=== PATIENT | male | born 1945 | race Caucasian/White ===

== ENCOUNTER → 2018-01-08 07:29 | Outpatient (CLI) | payer MEDICARE, OTHER, SELFPAY ==
--- NOTE | 2018-01-08 08:00 | CT_ITS ---
CT abdomen pelvis wo con CLINICAL INDICATION: Left flank pain ITS.REASON: FLANK PAIN ORDERING PHYSICIAN: Giuseppe Qureshi MD PATIENT AGE: 72 years COMPARISON: None TECHNIQUE: Axial images obtained with sagittal and coronal reformats. All CT scans at the facility use one or more dose reduction, viz: automated exposure control, ma/kV adjustment per patient size (including targeted exams where dose is matched to indication, i.e. head), or iterative reconstruction technique. PROCEDURE: Oral Contrast: None IV Contrast: None . FINDINGS: Lung bases show no acute finding. There has been a prior cholecystectomy. The liver, spleen, and adrenal glands have an unremarkable appearance. No pancreatic mass or peripancreatic fluid collection is evident. No renal calculi are evident. There is however, a 4 mm stone within the distal left ureter in the mid pelvic region. No hydronephrosis or ureteral dilatation is evident.. There is a small ventral abdominal wall hernia in the subxiphoid region containing fat. No intestinal obstruction or free air. There has been prior appendectomy. There is diverticulosis of the descending and sigmoid colon but no evidence of diverticulitis. There is a small left inguinal hernia which contains fat. No pelvic mass abnormal fluid collection or focal inflammatory changes evident within the pelvis. The urinary bladder has an unremarkable appearance. There are degenerative changes of the lumbar spine. IMPRESSION: 1. 4 mm left distal ureteral stone. This is in the mid pelvic region approximately 2 cm proximal to the ureteropelvic junction. No hydronephrosis or hydroureter. 2. Diverticulosis coli. 3. Small left femoral hernia containing fat and small subxiphoid ventral abdominal hernia containing fat
== END ==
PROVIDERS: PCP Internal Medicine Adolescent Medicine; Visit Provider Internal Medicine Adolescent Medicine
DX: R10.9 Unspecified abdominal pain (principal)
CPT/HCPCS: 74176

== ENCOUNTER 2018-02-12 09:00 | Outpatient (RCR) | payer MEDICARE, OTHER, SELFPAY ==
--- NOTE | 2018-01-29 10:46 | HMH.OTOPEV ---
OT Inpatient Evaluation Rehab OT Outpatient Eval Start: 01/29/18 10:29 Freq: Status: Active Protocol: Document 01/29/18 10:30 TFRY (Rec: 01/29/18 10:45 TFRY [id number]) Electronically Signed By Sunshine Borrero OT 01/29/18 10:30 Outpatient Therapy Subjective History Subjective History THIS IS A 72 YEAR OLD REFERRED TO OCCUPATIONAL THERAPY FOR LEFT ELBOW TENDINITIS. PATIENT REPORTS THAT THE PROBLEM HAS BEEN GOING ON FOR 6-8 MONTHS BUT HAS CONTINUED TO GET WORSE. HE REPORTS GOING TO THE [facility] AND WAS ON MEDICATIONS BUT NOTHING HAS WORKED. Chief Complaint Pain Symptom Type Ache Other Symptoms Relieved By Prescription Meds Symptoms Aggravated By Physical Activity Prior Functional Limitations None Current Functional Limitations None Symptom Description Constant but Variable Level of pain today (0-10) 2 Pain scale - at its best (0-10) 2 Pain scale - at its worst (0-10) 8 Shoulder/Elbow Eval Shoulder Objective Measurements Elbow Objective Measurements Palpation Tenderness Elbow Palpation Finding Tenderness tenderness elbow exam standard left tenderness over the medial epicondyle left elbow exam standard swelling elbow exam standard left Elbow ROM Left full ROM elbow exam standard left pain with active ROM elbow exam standard left pain with passive ROM elbow exam left standard Elbow ROM Limitations Pain Elbow MMT Elbow Flexion Strength Grade 4 Good Elbow Extension Strength Grade 3+ Fair+ Elbow Special Tests Medial Epicondylitis Test Positive Left OT Outpatient Assessment Impairments Problems/Impairments Palpation Tenderness Impaired Strength Impaired Shower/Bathing Impaired Recreational Activities Subjective C/O Pain Prognosis Rehab Potential Good Clinical Impression Consistent with Diagnosis Yes Short Term Goals Number of Weeks 3 Decreased Palpation Tenderness Yes: LEFT MEDIAL EPICONDYLE Increase Strength Yes: LEFT ELBOW EXTENSION - 4/ 5 Improve Ability to Shower/Bathe Self Yes: WITHOUT PAIN Return to Recreational Activities Yes: PERFORM WITHOUT PAIN Decrease Subjective C/O Pain Yes: PAIN A 5 AT WORSE IN LEFT ELBOW Patient to be Ind
== END 2018-03-12 09:44 | disposition home or self-care (01) ==
LOC: OT 09:00
PROVIDERS: PCP Internal Medicine Adolescent Medicine; Visit Provider Internal Medicine Adolescent Medicine
DX: M77.8 Other enthesopathies, not elsewhere classified (principal)
CPT/HCPCS: 97014; 97033; 97110; 97140; 97165; G0283

== ENCOUNTER 2018-02-24 11:00 | Outpatient (RCR) | payer MEDICARE, OTHER, SELFPAY ==
--- NOTE | 2018-02-18 09:59 | HMH.PTOPEV ---
PT Outpatient Evaluation Rehab PT Outpatient Evaluation Start: 02/18/18 09:41 Freq: Status: Active Protocol: Document 02/18/18 09:41 VANCE (Rec: 02/18/18 09:59 VANCE [id number]) Electronically Signed By Quinton Dang, PT 02/18/18 09:41 Outpatient Therapy Subjective History Subjective History Patient is a 72 year old male presenting to outpatient PT with reports of L medial elbow pain of insidious onset starting approximately 8 months ago that has progressively gotten worse. Pt previously was prescribed a round of oral steroids that provided some relief. Comorbidities include hx of cardiac bypass surgery x 2, multiple wrist/hand surgeries bilaterally (x5), TKA, appendectomy. Chief Complaint Pain Symptom Type Ache Sharp Symptoms Relieved By Rest/Positioning Ice Prescription Meds Symptoms Aggravated By Physical Activity Lifting Prior Functional Limitations None Current Functional Limitations Reaching Lifting Housework Recreation Activity Symptom Description Constant but Variable Level of pain today (0-10) 3 Pain scale - at its best (0-10) 3 Pain scale - at its worst (0-10) 9 Shoulder/Elbow Eval Shoulder Objective Measurements Elbow Objective Measurements Elbow ROM Bilateral full ROM elbow exam standard bilateral Elbow MMT Left Elbow Flexion Strength Grade 4 Good Biceps Brachii Strength Grade 4 Good Brachioradialis Strength Grade 4 Good Triceps Brachii Strength Grade 4 Good Elbow Special Tests Elbow Flexion Test Negative Left Elbow Special Test: Pinch Business Integration Analyst Test Negative Left Elbow Hyperextension Test Negative Left Passive Tennis Elbow Test Negative Left Elbow Tinel's Sign Negative Left Elbow Valgus Stress Test Negative Left Elbow Varus Stress Test Negative Left Medial Epicondylitis Test Negative Left Positive Right Tendon Reflex Test triceps (L) PM 2+ Brachioradialis (L) PM 2+ biceps (L) ED 2+ triceps (R) PM 2+ Brachioradialis (R) PM 2+ biceps (R) E
== END 2018-02-24 11:05 | disposition home or self-care (01) ==
LOC: PT 11:00
PROVIDERS: Visit Provider Internal Medicine Adolescent Medicine
DX: M77.8 Other enthesopathies, not elsewhere classified (principal)
CPT/HCPCS: 97010; 97014; 97035; 97110; 97140; 97163; G0283

== ENCOUNTER → 2018-03-24 11:57 | Outpatient (CLI) | payer MEDICARE, OTHER, SELFPAY ==
--- NOTE | 2018-03-24 12:06 | CT_ITS ---
CT abdomen pelvis wo con CLINICAL INDICATION: Left flank pain past 3 days ITS.REASON: FLANK PAIN ORDERING PHYSICIAN: Giuseppe Qureshi MD PATIENT AGE: 72 years TECHNIQUE: No oral nor IV contrast utilized. Axial images obtained with sagittal and coronal reformats. All CT scans at the facility use one or more dose reduction, viz: automated exposure control, ma/kV adjustment per patient size (including targeted exams where dose is matched to indication, i.e. head), or iterative reconstruction technique.. COMPARISON: Previous CT abdomen and pelvis January 08, 2018 FINDINGS: Lung bases show no acute finding.. Mild cardiomegaly. CABG.. Abdomen/pelvis. Lack of oral and IV contrast somewhat decreases sensitivity. The Liver Spleen, Pancreas, Adrenals unremarkable on this noncontrast study. There has been a prior cholecystectomy. The.. No pancreatic mass or peripancreatic fluidcollection is evident. Abnormal dilated inflamed distal left ureter: On the previous CT abdomen there is a 4 mm ureteral calculus at the distal left ureter. This has since passed and now is seen within the right aspect of the bladder. It measures 4 x 5 mm size. It resides adjacent to the right trigone. In addition there appears be mild diffuse wall thickening at the posterior bladder most evident to the left-. This likely reflects some inflammation or cystitis associated with the distal left ureteral inflammation described below... However since prior January CT there is now additional distal left ureteral dilatation, wall thickening. Periureteral inflammation and stranding in the periureteral fat is seen all along the distal left ureter. The most evident left ureteral dilatation and wall thickening is seen within the left ureter crosses the left iliac vessels vessels... Moderate Wispy stranding from this left periureteral region extends anteriorly along left pelvic sidewall to to the left inguinal region. No o focal fluid collection pelvis. No free fluid in cul-de-sac. No adjacent or associated diverticulitis to account for these inflammatory changes otherwise Suggest recheck of urinalysis for any related urinary tract infection. There could be some trauma of the ureter as a stone passed resulting in some with inflammation/infection; or possibly related blood or clots which may be contributing to this mild dilated left ureter appearance. More superiorly the left ureter appears to be normal an is no hydronephrosis.. Subtle stranding about both kidneys is noted. Most likely reflecting some mild chronic changes similar appearance previous. Less likely related to pyelonephritis. No retroperitoneal adenopathy. A few small nodes along the left pelvic sidewall. Small unimpressive. . GI tract Question small hiatal hernia stomach unremarkable. Duodenum unremarkable. Small bowel unremarkable. Terminal ileum satisfactory. Large bowel. Generous stool throughout the right colon. Moderate stool transverse colon. Relatively empty left colon. Diverticulosis most evident in pronounced throughout the sigmoid colon with scattered diverticuli throughout the left colon. No diverticulitis There is a small ventral abdominal wallhernia in the immediate subxiphoid region containing fat.. Stable not concern currently. Nor is a stable small fat-containing umbilical hernia. Generous fat along the left inguinal canal is again seen stable with slight laxity left inguinal ring which may reflect minor left inguinal hernia bulge. No bowel hernia here.. Osseous structures. Prominent Degenerative disc changes throughout spine again noted., With associated facet hypertrophy throughout lower spine. IMPRESSION. 1. The previous Distal left ureteral stone seen on January 2018 CT has passed
== END ==
PROVIDERS: PCP Internal Medicine Adolescent Medicine; Visit Provider Internal Medicine Adolescent Medicine
DX: R10.9 Unspecified abdominal pain (principal)
CPT/HCPCS: 74176

== ENCOUNTER → 2018-03-28 18:02 | Outpatient (CLI) | payer MEDICARE, OTHER, SELFPAY ==
[2018-04-10 11:14] LABS: Size 5x5x3 mm (.)
[2018-04-10 14:48] LABS: Specimen Type Comment: (.)
== END ==
PROVIDERS: Visit Provider Internal Medicine Adolescent Medicine
DX: N20.0 Calculus of kidney (principal)
CPT/HCPCS: 82370

== ENCOUNTER → 2019-10-12 12:42 | Outpatient (CLI) | payer MEDICARE, SELFPAY ==
--- NOTE | 2019-10-12 14:34 | CT_ITS ---
PROCEDURE: CT CHEST WO CON CLINICAL INDICATION: DYSPNEA Shortness of air COMPARISON: ABDPELWO CT abdomen pelvis wo con from 03/24/2018 TECHNIQUE: Axial images obtained with sagittal and coronal reformats. All CT scans at the facility use one or more dose reduction, viz: automated exposure control, ma/kV adjustment per patient size (including targeted exams where dose is matched to indication, i.e. head), or iterative reconstruction technique. FINDINGS: HEART AND MEDIASTINAL STRUCTURES: Prior CABG. Mild nonspecific thickening of the distal esophagus LUNGS AND PLEURAL SPACES: COPD with some scattered scarring. 3 mm noncalcified nodule right lower lobe posteriorly image 49 series 3. 3 mm noncalcified nodule left upper lobe series 3, image 32. 3 mm noncalcified nodule in the lingula. Calcified granuloma left lower lobe. 3 mm noncalcified nodule left lung base image 60 series 3 associated with some atelectatic or fibrotic changes. Four mm noncalcified nodule left lower lobe subpleural image 55 series 3. 4 mm nodule right lower lobe image 47 series 3 BONY STRUCTURES: No acute bony abnormalities apparent. UPPER ABDOMEN: Unremarkable. ADDITIONAL FINDINGS: No other significant abnormalities. IMPRESSION: 1. No acute finding. 2. COPD with scattered areas of scarring and scattered 3-4 mm noncalcified pulmonary nodules. Recommend six-month follow-up. 3. Mild nonspecific thickening of the distal esophagus Dictated by: Jan Murillo MD 10/13/2019 12:08 Electronically signed by Jan Murillo MD in [place] 10/13/2019 12:08
== END ==
PROVIDERS: PCP Internal Medicine Adolescent Medicine; Visit Provider Internal Medicine Adolescent Medicine
DX: R06.00 Dyspnea, unspecified (principal)
CPT/HCPCS: 71250; 94060; 94640; 94726; 94729

== ENCOUNTER → 2020-01-11 12:37 | Outpatient (CLI) | payer MEDICARE, SELFPAY ==
--- NOTE | 2020-01-11 | CA_ITS ---
APPROVED REPORT Left Lower Extremity Venous Study for DVT. Barrel Finisher: VENTURA Indications Lower Extremity Pain: Left HLD, HTN Risk Factors Trauma Patient states he hit is left lower leg with ax handle 01/07/20. Pain, bruising, and edema since. Medications Aspirin 81 mg ASA daily Vein Imaging CFV (L): compressive, spontaneous, phasic, augmentation FEM (L): compressive, spontaneous, phasic, augmentation POP (L): compressive, spontaneous, phasic, augmentation PTV (L): Compressible GSV (L): compressive, spontaneous, phasic, augmentation SSV (L): Compressible Peroneals (L):Compressible GAS (L): Compressible Findings No evidence of DVT or superficial thrombophlebitis in the veins scanned of the left lower extremity. Non-vascularized solid structure visualized in the left medial calf consistent with hematoma measuring approximately 2.9 cm x 1.4 cm. Conclusion No evidence of DVT or superficial thrombophlebitis in the veins scanned of the left lower extremity. Non-vascularized solid structure visualized in the left medial calf consistent with hematoma measuring approximately 2.9 cm x 1.4 cm. Electronically signed by : Jan Murillo MD 01/11/2020 17:15:38
--- NOTE | 2020-01-11 13:44 | XR_ITS ---
PROCEDURE: XR TIBIA FIBULA LT 2V CLINICAL INDICATION: LT LEG SWELLING,LT LEG PAIN COMPARISON: No exams were available for comparison FINDINGS: No fracture or dislocation. No lytic or blastic change. There is normal mineralization. Surgical clips are present along the medial aspect of the proximal leg and distally at the medial aspect of the ankle joint. Other findings:None. IMPRESSION: No acute findings. Dictated by: Jan Murillo MD 01/11/2020 14:24 Jan Murillo MD in [facility] 01/11/2020 14:24
== END ==
PROVIDERS: PCP Internal Medicine Adolescent Medicine; Visit Provider Nurse Practitioner Family
DX: Z01.89 Encounter for other specified special examinations (principal); M79.605 Pain in left leg; M79.89 Other specified soft tissue disorders; R05 Cough; R50.9 Fever, unspecified
CPT/HCPCS: 73590; 93971; U0003

== ENCOUNTER → 2020-08-16 18:21 | Outpatient (CLI) | payer MEDICARE, SELFPAY ==
[2020-08-16 19:00] LABS: Basophils % 0.7 % (0.1-2.0); Eosinophils # 0.2 K/mm3 (0.0-0.4); Eosinophils % 3.2 % (0.1-12.0); Hematocrit 42.9 % (42.0-52.0); Hemoglobin 13.6 g/dL (14.1-18.0); Lymphocytes # 1.6 K/mm3 (0.7-4.5); Lymphocytes % 24.6 % (10-50); Mean Corpuscular HGB Conc 31.8 g/dL (31.8-35.4); Mean Corpuscular Hemoglobin 28.6 pg (27.0-31.2); Mean Corpuscular Volume 90.1 fl (80-94); Mean Platelet Volume 9.3 fl (7.4-10.4); Monocytes # 0.5 K/mm3 (0.1-1.0); Monocytes % 8.2 % (1.7-9.3); Neutrophils # 4.1 K/mm3 (1.8-7.8); Neutrophils % 63.3 % (37.0-80.0); Platelet Count 318 K/mm3 (142-424); Red Blood Count 4.76 M/mm3 (4.60-6.20); Red Cell Distribution Width 15.2 % (11.5-17.5); White Blood Count 6.4 K/mm3 (4.8-10.8)
[2020-08-16 19:25] LABS: Alanine Aminotransferase 23 U/L (12-78); Albumin Level 4.3 g/dl (3.5-5.0); Albumin/Globulin Ratio 1.7 (1.1-1.8); Alkaline Phosphatase 86 U/L (38-126); Anion Gap 9.5 mEq/L (5-15); Aspartate Amino Transferase 27 U/L (17-59); Bilirubin,Total 0.4 mg/dl (0.2-1.3); Blood Urea Nitrogen 21 mg/dl (9-20); Calcium 9.4 mg/dl (8.4-10.2); Carbon Dioxide 27 mmol/L (22.0-30.0); Chloride 105 mmol/L (98-107); Chol/HDL Ratio 3.3 (1-3.5); Cholesterol 168 mg/dl (140-200); Estimated Glomerular Filt Rate 73 ml/min (>60); GFR (African American) 89 ML/MIN (>60); Globulin 2.5 g/dL (1.3-3.2); Glucose 104 mg/dl (74-100); HDL Cholesterol 51 mg/dl (40-60); Potassium 5.5 mmoL/L (3.5-5.1); Sodium 136 mmol/L (136-145); Total Protein,Serum 6.8 g/dl (6.3-8.2); Triglycerides 106 mg/dl (30-150); VLDL Cholesterol 21 mg/dL (0-40)
[2020-08-16 19:35] LABS: Direct LDL Cholesterol 77.85 mg/dL (100-129)
[2020-08-16 19:55] LABS: Prostate Specific Ag Screen 5.9 ng/ml (0.0-4.0)
[2020-08-16 20:35] LABS: 25-OH Vitamin D, Total 36.2 ng/mL (30-100)
== END ==
PROVIDERS: Visit Provider Internal Medicine Adolescent Medicine
DX: Z00.00 Encounter for general adult medical examination without abnormal findings (principal); R53.82 Chronic fatigue, unspecified; M47.896 Other spondylosis, lumbar region; Z12.5 Encounter for screening for malignant neoplasm of prostate; Z68.30 Body mass index [BMI] 30.0-30.9, adult; Z79.899 Other long term (current) drug therapy
CPT/HCPCS: 80053; 80061; 82306; 85025; G0103

== ENCOUNTER → 2020-09-02 07:38 | Outpatient (CLI) | payer MEDICARE, SELFPAY ==
--- NOTE | 2020-09-02 07:44 | MR_ITS ---
PROCEDURE INFORMATION: Exam: MR Lumbar Spine Without Contrast Exam date and time: 09/02/2020 7:44 AM Age: 75 years old Clinical indication: Low back pain TECHNIQUE: Imaging protocol: Multiplanar magnetic resonance images of the lumbar spine without intravenous contrast. COMPARISON: No relevant prior studies available. FINDINGS: Vertebrae: Normal alignment. Multilevel endplate degenerative changes. The advanced facet DJD. Spinal cord: Conus medullaris terminates in normal position at L1. Conus medullaris is unremarkable. L1-L2: Disc degeneration with disc space narrowing and broad based posterior disc bulge. No disc herniation or spinal stenosis. No significant foraminal stenosis. L2-L3: Disc degeneration with disc space narrowing and broad based posterior disc bulge. Mild central spinal stenosis. No significant foraminal stenosis. L3-L4: Disc degeneration with disc space narrowing and broad based posterior disc bulge. Mild-moderate spinal stenosis. Moderate bilateral foraminal stenosis. L4-L5: Disc degeneration with disc space narrowing and broad based posterior disc bulge. Mild-moderate spinal stenosis. Moderate bilateral foraminal stenosis. L5-S1: Severe disc degeneration with near-complete loss of disc height. Residual disc bulge extending into the right neural foramen. No spinal stenosis. Severe right foraminal stenosis. Soft tissues: Unremarkable. IMPRESSION: 1. Advanced degenerative spondylosis as above. Central spinal stenosis from L2-L3 to L4-L5. 2. Severe right L5-S1 foraminal stenosis. Moderate bilateral foraminal stenosis at L3-L4 and L4-L5.
== END ==
PROVIDERS: PCP Internal Medicine Adolescent Medicine; Visit Provider Internal Medicine Adolescent Medicine
DX: M47.896 Other spondylosis, lumbar region (principal)
CPT/HCPCS: 72148; 76376

== ENCOUNTER → 2021-02-14 15:01 | Outpatient (CLI) | payer MEDICARE, SELFPAY ==
--- NOTE | 2021-02-14 15:03 | CT_ITS ---
PROCEDURE: CT CHEST WO CON CLINICAL INDICATION: PULMONARY NODULES COMPARISON: CT CT CHEST WO CON from 10/12/2019 TECHNIQUE: Axial images obtained with sagittal and coronal reformats. All CT scans at the facility use one or more dose reduction, viz: automated exposure control, ma/kV adjustment per patient size (including targeted exams where dose is matched to indication, i.e. head), or iterative reconstruction technique. FINDINGS: HEART AND MEDIASTINAL STRUCTURES: Prior CABG. Hiatal hernia. No mediastinal or hilar mass or adenopathy. LUNGS AND PLEURAL SPACES: COPD changes with scattered areas of scarring. Scattered small nodular opacities once again noted overall not significantly changed. No new suspicious nodules evident. BONY STRUCTURES: No acute bony abnormalities apparent. UPPER ABDOMEN: Small hiatal hernia ADDITIONAL FINDINGS: No other significant abnormalities. IMPRESSION: Stable CT appearance of the chest. No change in the small pulmonary nodules. No change with no acute finding. Small hiatal hernia Dictated by: Jan Murillo MD 02/15/2021 10:39 Jan Murillo MD in [facility] 02/15/2021 10:39
== END ==
PROVIDERS: PCP Internal Medicine Adolescent Medicine; Visit Provider Internal Medicine Adolescent Medicine
DX: R91.8 Other nonspecific abnormal finding of lung field (principal)
CPT/HCPCS: 71250

== ENCOUNTER → 2021-03-08 07:38 | Outpatient (CLI) | payer MEDICARE, SELFPAY ==
--- NOTE | 2021-03-08 07:41 | CT_ITS ---
PROCEDURE: CT SINUS WO CON CLINICAL HISTORY: CHRONIC SINUSITIS COMPARISON: CT SINUS CT SINUS (MAX-FACIAL W/O CONT) from 07/04/2016 TECHNIQUE: Axial images obtained with sagittal and coronal reformats. All CT scans at the facility use one or more dose reduction, viz: automated exposure control, ma/kV adjustment per patient size (including targeted exams where dose is matched to indication, i.e. head), or iterative reconstruction technique. FINDINGS: No sinus air-fluid level. Mild mucosal thickening of the ethmoid sinuses. A small lobular area of soft tissue density is present in the superior and anterior aspect of the nasal canal on the right measuring 1 point cm AP and 0.5 cm transverse. This may represent a small polyp. Not significantly changed. Small retention cyst is present in the floor the right maxillary sinus at approximately 5 x 3 mm. The sphenoid sinus and frontal sinuses are unremarkable. The ostiomeatal complexes are patent. There is mild rightward nasal septal deviation. There is bilateral moderate TMJ arthropathy. Unremarkable appearing orbits IMPRESSION: 1. No evidence of acute sinusitis. 2. Minimal mucosal thickening of the ethmoid sinuses with suspected small polyp in the right nasal canal superiorly and anteriorly 3. Mild rightward nasal septal deviation. 4. Bilateral TMJ arthropathy Dictated by: Jan Murillo MD 03/09/2021 07:18 Jan Murillo MD in [place] 03/09/2021 07:18
== END ==
PROVIDERS: PCP Internal Medicine Adolescent Medicine; Visit Provider Internal Medicine Adolescent Medicine
DX: J32.0 Chronic maxillary sinusitis (principal)
CPT/HCPCS: 70486

== ENCOUNTER → 2021-05-01 09:36 | Outpatient (CLI) | payer MEDICARE, SELFPAY ==
--- NOTE | 2021-05-01 09:36 | FL_ITS ---
FINAL REPORT CLINICAL HISTORY: . coughing till passing out 50 sec fluoro time FINDINGS: ESOPHAGRAM HISTORY: Cough. TECHNIQUE: The patient ingested thick and thin barium contrast. Spot and overhead films were performed. A total of 36 images were saved. FINDINGS: The esophagus demonstrates a moderate sliding-type hiatal hernia. There is gastroesophageal reflux to the thoracic inlet. No mucosal defects are seen. There is severe esophageal dysmotility. No changes of esophagitis are evident. 13 mm barium tablet passes easily through the esophagus and into the stomach. Fluoroscopy time: 50 seconds. IMPRESSION: Moderate sized hiatal hernia with gastroesophageal reflux. Esophageal dysmotility. Reviewed, Interpreted and Dictated by Corey Ramsey MD Transcribed by Thais Lester PA-C Authenticated by Corey Ramsey MD on 05/01/2021 12:18:34 PM [facility]
== END ==
PROVIDERS: PCP Internal Medicine Adolescent Medicine; Visit Provider Student in an Organized Health Care Education/Training Program
DX: R05.9 Cough, unspecified (principal); Z01.812 Encounter for preprocedural laboratory examination; Z11.52 Encounter for screening for COVID-19; K21.9 Gastro-esophageal reflux disease without esophagitis
CPT/HCPCS: 74220; C9803; U0003; U0005

== ENCOUNTER 2021-05-03 08:11 | Day surgery (SDC) | payer MEDICARE, SELFPAY ==
[2021-05-01 10:12] VITALS: BMI 33.0
[2021-05-03] VITALS (7 sets, daily range): BP systolic 88–139; BP diastolic 63–91; PULSE 70–86; RESP 16–18; TEMP 36.3–36.5; O2SAT 93–100
--- NOTE | 2021-05-03 09:14 | P.PN_ITS ---
[facility] Anesthesia Checklist - Patient Identification Patient Identification: Arm Band - Structural Data Admitted From: Home Planned Operative Procedure/s: egd Consent for Planned Operative Procedure(s) Verified: Yes Verified Documents: Surgical Consent, History and Physical - NPO Status Verified Time NPO: 00:00 - Additional verifications Anesthesia Reactions: No - Airway Assessment C-Spine Mobility Assessed: Yes (mp1) TMJ Mobility Assessed: Yes Dentition: Good Dentition - Neurological Assessment Level of Consciousness: Awake, Alert - Anesthesia Plan Anesthesia Risk discussed: Yes Anesthesia Plan: Verified ASA Class: III Anesthesia Type: MAC [facility] History I have reviewed the patient's past medical history: Yes Medical History: Reports:: Chronic Obstructive Pulmonary Disease (COPD), Coronary Artery Disease, Depression, Gastroesophageal Reflux Disease(GERD), Hyperlipidemia, Hypertension Denies:: Cancer, Diabetes Mellitus Type 1, Diabetes Mellitus Type 2, Internal Pacemaker, MRSA, Seizures *Have you ever received a pneumonia vaccine?: Yes *Have you received a flu vaccine this season?: Yes Other Medical History: Reports: Sinus Problems, Other (enlarged prostate, sleep apnea, migraines) Anesthesia experience/problems:: nac Laterality Cases: Bilateral: Arthroscopy Knee Other Surgeries: Yes: Appendectomy, Cholecystectomy, Other. No: Pacemaker Amputation: No Fractures: No - *Social History Last grade of school completed: Advanced degree Smoking Status: Never smoker Alcohol Intake: never Substance Use Type: denies use *Occupational Status:: retired Housing: house Household Members: spouse *Travel in the last 8 weeks: Inside the [facility] - Psychiatric History Pschychiatric History:: Reports:: Depression Family Hx:: Coronary Artery Disease, Diabetes
--- NOTE | 2021-05-03 09:53 | HMH.SCOPE ---
- Procedure: Date: 05/03/21 Patient Date of :: 1945 Procedure Performed:: EGD Indications:: 75 year old with cough, BENITA, intermittent dysphagia. The patient has had recent ENT evaluation. Barium esophagram demonstrated moderate sized hiatal hernia. Performing Provider:: Ethan Gibson MD Referring Provider:: MD Erlin Seay MD (ENT) Sedation:: See RN notes Procedure:: The gastroscope was gently passed through the incisoral orifice into the oral cavity and under direct visualization the esophagus was intubated. The endoscope was passed down the esophagus, through the stomach, and into the duodenum. Color, texture, mucosa, and anatomy of the esophagus, stomach, and duodenum were carefully examined with the scope. Findings:: Oropharynx: normal Esophagus: normal. Biopsies obtained distal and mid esophagus Tortuous distal esophagus secondary to moderate large hiatal hernia. Schatzki ring. Dilatation performed sequentially with 18-20 mm tts balloon EG Junction: measured at 36 cm. Cardia: Hiatal hernia approximately 4-5 cm in size Fundus: normal Body: Diffuse erythema, Mild gastritis. Biopsy obtained Antrum: Diffuse erythema, Mild gastritis. Biopsy obtained Duodenal bulb: normal Duodenum (second and third portion): normal Recommendations:: Await pathology results Continue pepcid that was recently prescribed Can increase nexium to 40 mg two times per day if needed Consider referral for surgical consultation for moderate large hiatal hernia Complications:: None Estimated blood obtained (mL): 0
== END 2021-05-03 10:38 | disposition home or self-care (01) ==
LOC: OUTP 08:13
PROVIDERS: PCP Internal Medicine Adolescent Medicine; Referring Provider Student in an Organized Health Care Education/Training Program; Visit Provider Internal Medicine
PROC: 0DJ08ZZ Inspection of Upper Intestinal Tract, Via Natural or Artificial Opening Endoscopic (ICD-10-PCS; CPT 43235; principal; 2021-05-03 09:30)
DX: K22.2 Esophageal obstruction (principal); K44.9 Diaphragmatic hernia without obstruction or gangrene; K22.89 Other specified disease of esophagus; K29.60 Other gastritis without bleeding; J44.9 Chronic obstructive pulmonary disease, unspecified; I25.10 Atherosclerotic heart disease of native coronary artery without angina pectoris; F32.A Depression, unspecified; K21.9 Gastro-esophageal reflux disease without esophagitis; E78.5 Hyperlipidemia, unspecified; I10 Essential (primary) hypertension; G43.909 Migraine, unspecified, not intractable, without status migrainosus; G47.33 Obstructive sleep apnea (adult) (pediatric)
CPT/HCPCS: 43239; 43249; 88305; 88342; C1726

== ENCOUNTER → 2021-06-19 08:51 | Outpatient (CLI) | payer MEDICARE, SELFPAY | PROVIDERS: Visit Provider Surgery | DX: Z01.812 Encounter for preprocedural laboratory examination (principal); Z11.52 Encounter for screening for COVID-19; K44.9 Diaphragmatic hernia without obstruction or gangrene | CPT/HCPCS: C9803; U0003; U0005 ==

== ENCOUNTER → 2021-07-11 09:12 | Outpatient (CLI) | payer MEDICARE, SELFPAY | PROVIDERS: Visit Provider Surgery | DX: Z01.812 Encounter for preprocedural laboratory examination (principal); Z11.52 Encounter for screening for COVID-19; K44.9 Diaphragmatic hernia without obstruction or gangrene | CPT/HCPCS: C9803; U0003; U0005 ==

== ENCOUNTER → 2021-09-12 14:02 | Outpatient (CLI) | payer MEDICARE, SELFPAY ==
[2021-09-14 08:22] LABS: PSA, Free 1.88 ng/mL
== END ==
PROVIDERS: PCP Internal Medicine Adolescent Medicine; Visit Provider Urology
DX: R97.20 Elevated prostate specific antigen [PSA] (principal)
CPT/HCPCS: 36415; 84153; 84154

== ENCOUNTER → 2021-10-17 11:38 | Outpatient (CLI) | payer MEDICARE, SELFPAY | PROVIDERS: PCP Internal Medicine Adolescent Medicine; Visit Provider Surgery | DX: U07.1 COVID-19 (principal) | CPT/HCPCS: C9803; U0003; U0005 ==

== ENCOUNTER → 2021-10-30 16:15 | Outpatient (CLI) | payer MEDICARE, SELFPAY ==
--- NOTE | 2021-10-30 16:18 | XR_ITS ---
PROCEDURE INFORMATION: Exam: XR Chest Exam date and time: 10/30/2021 4:21 PM Age: 76 years old Clinical indication: Cough; Additional info: Acute cough TECHNIQUE: Imaging protocol: Radiologic exam of the chest. Views: 2 views. COMPARISON: CT CHEST WO CON 02/14/2021 3:05 PM FINDINGS: Lungs: Unremarkable. No consolidation. Pleural spaces: Unremarkable. No pleural effusion. No pneumothorax. Heart/Mediastinum: Unremarkable. No cardiomegaly. Bones/joints: Median sternotomy. IMPRESSION: No acute findings.
== END ==
PROVIDERS: PCP Internal Medicine Adolescent Medicine; Visit Provider Internal Medicine Adolescent Medicine
DX: R05.1 Acute cough (principal)
CPT/HCPCS: 71046

== ENCOUNTER 2021-12-23 08:49 | Emergency (ER) | payer MEDICARE, SELFPAY ==
[2021-12-23] VITALS (10 sets, daily range): BP systolic 161–196; BP diastolic 89–107; PULSE 66–76; RESP 16–20; TEMP 36.7; O2SAT 96–99; BMI 30.5
--- NOTE | 2021-12-23 08:51 | PC.NURSE ---
0841 ED MD AT BEDSIDE FOR EVALUATION
--- NOTE | 2021-12-23 08:57 | ECG_ITS ---
APPROVED REPORT Exam: Resting ECG HR:80 bpm ECG Measurements Heart Rate 80 AXES SD 184 P 61 QRSd 118 QRS 54 QT 367 T 56 QTc 403 Conclusion SINUS RHYTHM WITH OCCASIONAL VENTRICULAR PREMATURE COMPLEXES MODERATE INTRAVENTRICULAR CONDUCTION DELAY [110+ ms QRS DURATION] BORDERLINE ECG UNCONFIRMED REPORT Electronically signed by : Bo Samuels MD 12/25/2021 15:15:13
--- NOTE | 2021-12-23 09:01 | XR_ITS ---
PROCEDURE INFORMATION: Exam: XR Chest Exam date and time: 12/23/2021 9:19 AM Age: 76 years old Clinical indication: Pain; Angina pectoris; Additional info: Cp sudden onset, radiates to back TECHNIQUE: Imaging protocol: Radiologic exam of the chest. Views: 1 view. COMPARISON: CR XR CHEST 2V 10/30/2021 4:21 PM FINDINGS: Lungs: Unremarkable. No consolidation. Pleural spaces: Unremarkable. No pleural effusion. No pneumothorax. Heart/Mediastinum: Unremarkable. No cardiomegaly. Bones/joints: Median sternotomy wires. IMPRESSION: No acute process.
--- NOTE | 2021-12-23 09:04 | HMH.EDGENADL ---
Discharge Plan Disposition Patient Disposition: Home, Self-Care Condition: Good Chief Complaint: Chest Pain Prescriptions Prescriptions: No Action venlafaxine 150 mg capsule,extended release 24hr 150 mg PO DAILY Qty: 90 ezetimibe [Zetia] 10 mg tablet 10 mg PO DAILY folic acid 1 mg tablet 1 mg PO DAILY tamsulosin 0.4 mg capsule 0.4 mg PO DAILY montelukast 10 mg tablet 10 mg PO QPM esomeprazole magnesium 40 mg capsule,delayed release(DR/EC) 40 mg PO DAILY allopurinol 100 mg tablet 100 mg PO DAILY chlorzoxazone 500 mg tablet 500 mg PO TID colchicine 0.6 mg capsule 0.6 mg PO BID rosuvastatin 10 mg tablet 10 mg PO DAILY losartan 50 mg tablet 50 mg PO DAILY azelastine 205.5 mcg (0.15 %) spray,non-aerosol 0.1 ml INTRANASAL DAILY aspirin [Adult Aspirin Regimen] 81 mg tablet,delayed release (DR/EC) 81 mg PO DAILY famotidine 20 mg tablet 40 mg PO DAILY Qty: 90 3RF ipratropium bromide 15 ML spray,non-aerosol 2 spray INTRANASAL TID Rx Instructions: administer into each nostril Referrals Follow up/Referrals: Dannie Galeana MD [Primary Care Provider] - See instructions Clinical Impressions Clinical Impression: Chest pain Discharge ED Provider: Dannie Galeana General Adult HPI General Chief complaint: Chest Pain Stated complaint: chest pain Time Seen by Provider: 12/23/21 08:50 Mode of Arrival: Ambulatory Source of Information: Patient Limitations: No Limitations Description of Symptoms (Recalled from ER Triage Doc. by RN): ABOUT 0820 PT REMOVING PLASTIC FROM A PALLET, BENT OVER. C/O DIFFUSE CHEST PAIN THAT RADIATES TO BACK AND JAW. REPORTS PAIN DULL ACHE. History of Present Illness HPI narrative: This is a 76-year-old male with history of ACS, CO, 6 vessel CABG currently on 81 mg aspirin, cholecystectomy presenting with chest pain. Patient states they were doing low intensity work, cutting plastic wrap off of a pallet when he had acute onset back pain that radiated forward to his chest, up to the right side of his neck. Pain was 8 out of 10 initially, but has since remitted to 2 out of 10, aching/cramping pain, and associated with general malaise. Nothing in particular makes the pain worse. Pain is relieved by rest. He was unable to try his nitroglycerin, given he lost his prescription bottle. He denies shortness of breath, nausea, vomiting, vision changes, neurologic deficits, abdominal pain, diaphoresis, syncope, or any other concerning history. Related Data Home Medications Medication Instructions Recorded Confirmed allopurinol 100 mg tablet 100 mg PO DAILY gout 12/29/18 09/12/21 chlorzoxazone 500 mg tablet 500 mg PO TID . 12/29/18 09/12/21 colchicine 0.6 mg capsule 0.6 mg PO BID . 12/29/18 09/12/21 esomeprazole magnesium 40 mg 40 mg PO DAILY . 12/29/18 09/12/21 capsule,delayed release ezetimibe 10 mg tablet (Zetia) 10 mg PO DAILY . 12/29/18 09/12/21 folic acid 1 mg tablet 1 mg PO DAILY Supplement 12/29/18 09/12/21 montelukast 10 mg tablet 10 mg PO QPM Breathing problems 12/29/18 09/12/21 tamsulosin 0.4 mg capsule 0.4 mg PO DAILY prostate 12/29/18 09/12/21 venlafaxine 150 mg 150 mg PO DAILY Depression #90 caps 12/29/18 09/12/21 capsule,extended release 24 hr aspirin 81 mg tablet,delayed 81 mg PO DAILY Supplement 04/26/21 09/12/21 release (Adult Aspirin Regimen) azelastine 205.5 mcg (0.15 %) 0.1 ml intranasal DAILY Breathing 04/26/21 09/12/21 nasal spray problems losartan 50 mg tablet 50 mg PO DAILY bp 04/26/21 09/12/21 rosuvastatin 10 mg tablet 10 mg PO DAILY Cholesterol 04/26/21 09/12/21 ipratropium bromide 42 mcg (0.06 2 spray intranasal TID Breathing 05/03/21 09/12/21 %) nasal spray problems Previous Rx's Medication Instructions Recorded famotidine 20 mg tablet 40 mg PO DAILY take both tablets 04/26/21 at [facility] #90 tabs Allergies Allergy/AdvReac Type Severity Reaction Stat
--- NOTE | 2021-12-23 09:08 | PC.NURSE ---
ekg delayed due to UTC having ekg machine
--- NOTE | 2021-12-23 09:09 | PC.NURSE ---
Radiology at bedside.
--- NOTE | 2021-12-23 09:09 | PC.NURSE ---
XR AT BEDSIDE
[2021-12-23 09:11] LABS: Basophils # 0.2 K/mm3 (0-0.2); Basophils % 2.8 % (0.1-2.0); Eosinophils # 0.2 K/mm3 (0.0-0.4); Eosinophils % 3.9 % (0.1-12.0); Hematocrit 42.7 % (42.0-52.0); Hemoglobin 13.6 g/dL (14.1-18.0); Lymphocytes # 1.4 K/mm3 (0.7-4.5); Lymphocytes % 25.2 % (10-50); Mean Corpuscular HGB Conc 31.8 g/dL (31.8-35.4); Mean Corpuscular Hemoglobin 29.5 pg (27.0-31.2); Monocytes # 0.5 K/mm3 (0.1-1.0); Monocytes % 9.6 % (1.7-9.3); Neutrophils # 3.2 K/mm3 (1.8-7.8); Neutrophils % 58.6 % (37.0-80.0); Platelet Count 352 K/mm3 (142-424); Red Blood Count 4.59 M/mm3 (4.60-6.20); Red Cell Distribution Width 14.8 % (11.5-17.5); White Blood Count 5.5 K/mm3 (4.8-10.8)
[2021-12-23 09:13] LABS: Chloride 104 mmol/L (98-107); Potassium 4.3 mmoL/L (3.5-5.1); Sodium 141 mmol/L (136-145)
[2021-12-23 09:16] LABS: Alanine Aminotransferase 24 U/L (12-78); Albumin/Globulin Ratio 1.5 (1.1-1.8); Alkaline Phosphatase 80 U/L (38-126); Anion Gap 14.3 mEq/L (5-15); Aspartate Amino Transferase 31 U/L (17-59); Bilirubin,Total 0.3 mg/dl (0.2-1.3); Blood Urea Nitrogen 19 mg/dl (9-20); Carbon Dioxide 27 mmol/L (22.0-30.0); Creatinine Clearance Estimated 89 mL/min (50-200); Estimated Glomerular Filt Rate 94 ml/min (>60); GFR (African American) 114 ML/MIN (>60); Globulin 2.7 g/dL (1.3-3.2); Lipase 27 U/L (23-300); Total Protein,Serum 6.7 g/dl (6.3-8.2)
[2021-12-23 09:17] LABS: Calcium 8.4 mg/dl (8.4-10.2); Glucose 115 mg/dl (74-100)
[2021-12-23 09:25] LABS: NT Pro Brain Natriuretic Pep. 659 pg/mL (0-125)
[2021-12-23 09:30] LABS: Troponin I < 0.01 ng/ml (0.00-0.034)
--- NOTE | 2021-12-23 09:41 | PC.NURSE ---
Provided pt with warm blanket. at bedside.
--- NOTE | 2021-12-23 10:15 | PC.NURSE ---
ED MD AT BEDSIDE TO UPDATE PT AND ON POC. NO NEEDS AT THIS TIME
[2021-12-23 12:07] LABS: Troponin I < 0.01 ng/ml (0.00-0.034)
== END 2021-12-23 12:20 | disposition home or self-care (01) ==
PROVIDERS: Emergency Provider Emergency Medicine; PCP Emergency Medicine
DX: R07.9 Chest pain, unspecified (principal); M54.2 Cervicalgia; M54.9 Dorsalgia, unspecified; I24.9 Acute ischemic heart disease, unspecified; R68.84 Jaw pain; I25.2 Old myocardial infarction; K44.9 Diaphragmatic hernia without obstruction or gangrene; Z79.51 Long term (current) use of inhaled steroids; Z79.82 Long term (current) use of aspirin; Z79.899 Other long term (current) drug therapy; Z88.2 Allergy status to sulfonamides; Z88.8 Allergy status to other drugs, medicaments and biological substances; Z95.1 Presence of aortocoronary bypass graft
CPT/HCPCS: 71045; 80053; 83690; 83880; 84484; 85025; 93005; 96374; 99285

== ENCOUNTER → 2023-01-15 16:32 | Outpatient (CLI) | payer MEDICARE, SELFPAY ==
--- NOTE | 2023-01-15 16:34 | MR_ITS ---
PROCEDURE INFORMATION: Exam: MR Head Without Contrast Exam date and time: 01/15/2023 4:34 PM Age: 77 years old Clinical indication: Pain; Headache; Additional info: Headaches TECHNIQUE: Imaging protocol: Magnetic resonance imaging of the head without contrast. COMPARISON: CT SINUS WO CON 03/08/2021 7:51 AM FINDINGS: Major vascular flow voids at the skull base are preserved. No extra-axial fluid collection. No obstructive hydrocephalus. Age-related volume loss. Non-specific white matter gliosis, probable chronic microvascular ischemia. No midline shift or significant intracranial mass effect. No cerebral edema. No diffusion restriction. Minimal paranasal sinus disease. No significant mastoid effusion. IMPRESSION: No acute intracranial abnormality.
== END ==
PROVIDERS: PCP Internal Medicine Adolescent Medicine; Visit Provider Internal Medicine Adolescent Medicine
DX: G44.009 Cluster headache syndrome, unspecified, not intractable (principal); I10 Essential (primary) hypertension; R55 Syncope and collapse; Z87.891 Personal history of nicotine dependence
CPT/HCPCS: 70551

== ENCOUNTER → 2023-01-17 08:26 | Outpatient (CLI) | payer MEDICARE, SELFPAY ==
--- NOTE | 2023-01-17 08:29 | CA_ITS ---
FINAL REPORT TECHNIQUE: Color Doppler, duplex Doppler and michaud scale sonography of the bilateral neck arterial vasculature was performed. Velocities were measured in the carotid arteries. Stenosis evaluation based on the validated velocity criteria. CLINICAL HISTORY: DIZZINESS,RIOS FINDINGS: The peak systolic velocity of the right common carotid artery is 44 cm/s. The peak systolic velocity of the right internal carotid artery is 80 cm/s and end diastolic velocity 20 cm/s. The ICA/CCA ratio is 2.2. A moderate amount of plaque is present. The right external carotid artery is patent. The right vertebral artery is patent with antegrade flow. The peak systolic velocity of the left common carotid artery is 49 cm/s. The peak systolic velocity of the left internal carotid artery is 94 cm/s and end diastolic velocity 32 cm/s. The ICA/CCA ratio is 2.1. A moderate amount of plaque is present. The left external carotid artery is patent.The left vertebral artery is patent with antegrade flow. IMPRESSION: Less than 50% bilateral carotid stenoses. Bilateral patent vertebral arteries with antegrade flow. If indicated, CTA or MRA could further evaluate. Reviewed, Interpreted and Dictated by Mt Castillo III, MD Transcribed by Sarah Erazo Authenticated and [facility]
== END ==
PROVIDERS: PCP Internal Medicine Adolescent Medicine; Visit Provider Internal Medicine Adolescent Medicine
DX: R42 Dizziness and giddiness (principal); I10 Essential (primary) hypertension; G44.009 Cluster headache syndrome, unspecified, not intractable; Z87.891 Personal history of nicotine dependence
CPT/HCPCS: 93880

== ENCOUNTER 2023-03-04 19:45 | Emergency (ER) | payer MEDICARE, SELFPAY ==
[2023-03-04 19:46] VITALS: BP 122/82; PULSE 80; RESP 18; TEMP 36.6; O2SAT 99; BMI 30.8
--- NOTE | 2023-03-04 20:08 | HMH.EDGENADL ---
Discharge Plan Disposition Patient Disposition: Home, Self-Care Prescriptions Prescriptions: No Action venlafaxine 150 mg capsule,extended release 24hr 150 mg PO DAILY Qty: 90 ezetimibe [Zetia] 10 mg tablet 10 mg PO DAILY folic acid 1 mg tablet 1 mg PO DAILY tamsulosin 0.4 mg capsule 0.4 mg PO DAILY montelukast 10 mg tablet 10 mg PO QPM esomeprazole magnesium 40 mg capsule,delayed release(DR/EC) 40 mg PO DAILY allopurinol 100 mg tablet 100 mg PO DAILY chlorzoxazone 500 mg tablet 500 mg PO TID colchicine 0.6 mg capsule 0.6 mg PO BID rosuvastatin 10 mg tablet 10 mg PO DAILY losartan 50 mg tablet 50 mg PO DAILY azelastine 205.5 mcg (0.15 %) spray,non-aerosol 0.1 ml INTRANASAL DAILY aspirin [Adult Aspirin Regimen] 81 mg tablet,delayed release (DR/EC) 81 mg PO DAILY famotidine 20 mg tablet 40 mg PO DAILY Qty: 90 3RF ipratropium bromide 15 ML spray,non-aerosol 2 spray INTRANASAL TID Rx Instructions: administer into each nostril Referrals Follow up/Referrals: Bo Samuels MD [Primary Care Provider] - See instructions Activity Restrictions/Add. Instructions Additional Instructions/Restrictions: Call your family doctor to establish care for this visit to the emergency department and schedule follow-up within 48 hours to ensure improvement. If you have any worsening of your condition or any other concerning signs or symptoms, return to the emergency department or your primary care doctor for further evaluation. Clinical Impressions Clinical Impression: Laceration Instructions Patient Instructions: DI for Laceration Repair Discharge ED Provider: Dannie Galeana General Adult HPI General Chief complaint: Wound/Laceration Stated complaint: AO 03/04, left hand index finger lac Time Seen by Provider: 03/04/23 19:47 Mode of Arrival: Ambulatory Source of Information: Patient Limitations: No Limitations Description of Symptoms (Recalled from ER Triage Doc. by RN): pt cut middle left finger on angle sausage grinder tonight at home, last tetnus was 10 years ago, edges are approxiamate and bleeding is controlled, pt only takes 81mg ASA as far as blood thinners History of Present Illness HPI narrative: 77-year-old male history of CAD status post CABG currently on 81 aspirin presenting with left index finger injury. Patient states he was using an angle sausage grinder and slipped and cut his finger. This happened about 4 hours prior to arrival. Patient came to emergency department for further evaluation. Related Data Home Medications Medication Instructions Recorded Confirmed allopurinol 100 mg tablet 100 mg PO DAILY gout 12/29/18 09/12/21 chlorzoxazone 500 mg tablet 500 mg PO TID . 12/29/18 09/12/21 colchicine 0.6 mg capsule 0.6 mg PO BID . 12/29/18 09/12/21 esomeprazole magnesium 40 mg 40 mg PO DAILY . 12/29/18 09/12/21 capsule,delayed release ezetimibe 10 mg tablet (Zetia) 10 mg PO DAILY . 12/29/18 09/12/21 folic acid 1 mg tablet 1 mg PO DAILY Supplement 12/29/18 09/12/21 montelukast 10 mg tablet 10 mg PO QPM Breathing problems 12/29/18 09/12/21 tamsulosin 0.4 mg capsule 0.4 mg PO DAILY prostate 12/29/18 09/12/21 venlafaxine 150 mg 150 mg PO DAILY Depression #90 caps 12/29/18 09/12/21 capsule,extended release 24 hr aspirin 81 mg tablet,delayed 81 mg PO DAILY Supplement 04/26/21 09/12/21 release (Adult Aspirin Regimen) azelastine 205.5 mcg (0.15 %) 0.1 ml intranasal DAILY Breathing 04/26/21 09/12/21 nasal spray problems losartan 50 mg tablet 50 mg PO DAILY bp 04/26/21 09/12/21 rosuvastatin 10 mg tablet 10 mg PO DAILY Cholesterol 04/26/21 09/12/21 ipratropium bromide 42 mcg (0.06 2 spray intranasal TID Breathing 05/03/21 09/12/21 %) nasal spray problems Previous Rx's Medication Instructions Recorded famotidine 20 mg tablet 40 mg PO DAILY take both tablets 04/26/21 at [facility] #90 tabs Allergies Allergy/Adv
[2023-03-04 21:08] VITALS: BP 126/88; PULSE 78; RESP 16; TEMP 36.6; O2SAT 97
== END 2023-03-04 21:09 | disposition home or self-care (01) ==
PROVIDERS: Emergency Provider Emergency Medicine; PCP Internal Medicine Adolescent Medicine
DX: S61.211A Laceration without foreign body of left index finger without damage to nail, initial encounter (principal); Z95.5 Presence of coronary angioplasty implant and graft; Z86.79 Personal history of other diseases of the circulatory system; W31.2XXA Contact with powered woodworking and forming machines, initial encounter; Z23 Encounter for immunization
CPT/HCPCS: 12001; 90471; 90715; 99283

== ENCOUNTER 2023-04-02 08:00 | Outpatient (RCR) | payer MEDICARE, SELFPAY | END 2023-04-02 09:00 | disposition home or self-care (01) | LOC: PT 08:00 | PROVIDERS: Visit Provider Orthopaedic Surgery | DX: M70.62 Trochanteric bursitis, left hip (principal); M25.552 Pain in left hip | CPT/HCPCS: 97010; 97014; 97035; 97110; 97163; G0283 ==

== ENCOUNTER 2023-10-04 07:35 | Outpatient (CLI) | payer MEDICARE, SELFPAY ==
--- NOTE | 2023-10-04 07:39 | XR_ITS ---
FINAL REPORT TECHNIQUE: 5 views CLINICAL HISTORY: LBP x 2 weeks FINDINGS: There is no fracture present. There is no malalignment. There is severe diffuse degenerative disc disease and spondylosis. Facet arthropathy is identified. There is probable canal stenosis and neural foraminal narrowing in the lower lumbar spine. IMPRESSION: Advanced degenerative changes. Reviewed, Interpreted and Dictated by Johana Powers MD Transcribed by Sarah Erazo Authenticated and [facility]
== END 2023-10-04 23:59 | disposition home or self-care (01) ==
LOC: RAD 07:37
PROVIDERS: PCP Internal Medicine Adolescent Medicine; Visit Provider Internal Medicine Adolescent Medicine
DX: M54.50 Low back pain, unspecified (principal)
CPT/HCPCS: 72110

== ENCOUNTER 2023-10-21 07:00 | Outpatient (RCR) | payer MEDICARE, SELFPAY ==
--- NOTE | 2023-10-15 14:25 | HMH.PTOPEV ---
PT Outpatient Evaluation Rehab PT Outpatient Evaluation Start: 10/15/23 12:59 Freq: Status: Active Protocol: Document 10/15/23 12:59 PDESEROUX (Rec: 10/15/23 14:21 PDESEROUX Desktop) E-signed By Jeffrey Reynolds, PT Outpatient Therapy Subjective History Subjective History Pt. is a 78 year old male who presents to [facility] Out[facility] Services in [place] for the initial evaluation this date( 10/15/23) w/ c/o acute and constant R-sided lumbar and LLE P!, numbness, and stiffness a couple weeks ago. Pt. reports using the row machine at the [facility] and states having symptom onset in the R -sided lumbar region the next day that hasn't gone away. Pt. reports constant LLE P! and numbness originating 5-6 days ago that remains a constant dull ache that can worsen in severity to posterior LLE knee . Pt. reports symptoms will radiate from the LLE hip to the knee. Pt. denies having any symptoms radiate inferior to the knee. Pt. denies saddle paresthesia at this time, denies having any bowel/ bladder dysfunction. Pt. reports nothing would help the pain initially except for time. Pt. denies having any symptom relief w/ prescribed medication. Pt. reports having some symptom relief w/ MHP while he uses the modality. Recent diagnostic imaging( radiograph) indicated severe DDD. Pt. denies having an injection for current complaint. Pt. reports having an increase in P! when he bends to pick an object up off the floor and w/ twisting activities including rolling over in the bed. Pt. reports he will bring in his list of medications and surgeries upon return. PMH includes CABG x 2 , Appendectomy, Cholecystectomy, S/P RLE TKA, S/P B/L SI jt. fusion, and Surgical Thrombectomy. New diagnosis of cancer in past 12 No months? Chief Complaint Pain,Spasms,Stiff,Catches/ Locks,Paresthesia Symptom Type Ache,Sharp,Stabbing,Numbness, Shooting Symptoms Relieved By Rest/Positioning,Heat Symptoms Aggravated By Supine,Bending/Stooping, Physical Activity,Twisting, Lifting Prior Functional Limitations None Current Functional Limitations Lifting,Sleeping,Recreation Activity,Bending/Stooping Symptom Description Constant but Variable,Activity Dependent Level of pain today (0-10) 5 Pain scale - at its best (0-10) 3 Pain scale - at its worst (0-10) 6 Lumbopelvic Eval Posture Thoracic Spine Posture Standing Position Neutral Lumbar Spine Posture Standing Position Flexible Scoliosis on (L), Flexed Assistive device Assistive Devices None / NA Gait Observation General Gait Pattern Observation No Deviations/Normal Palapation tenderness right thoracic spinal tenderness No lumbar spinal tenderness No paraspinal tenderness No buttock tenderness No Lumbar/Sacral Palpation Findings Tenderness Lumbar/Sacral Palpation Overall Comment grade 4 +TTP to R-sided QL mm. and muscle insertion 12th rib Accessory Movement T-spine Vertebrae Accessory Movements Right P/A [place] that Elicit Symptoms T12 right Range of Motion Lumbar Spine Active Flexion Range of 54 Motion (degrees) Lumbar Spine Active Extension Range of 11 Motion (degrees) Left Lumbar Spine Lateral Flexion Active 13 Range of Motion (degrees) Right Lumbar Spine Lateral Flexion 14 Active Range of Motion (degrees) Lumbar Spine ROM Limitations Soft Tissue Tightness,Muscle Weakness,Muscle Tone,Pain Manual Muscle Test Bilateral Knee Extension Strength Grade 4- Good- Knee Flexion Strength Grade 4- Good- Hip Flexion Strength Grade 4- Good- Hip Abduction Strength Grade 4 Good Hip Adduction Strength Grade 4 Good Hip External Rotation Strength Grade 4 Good Hip Internal Rotation Strength Grade 4 Good Hip Extension Strength Grade 4 Good Gluteus Roni Strength Grade 4 Good Extensor Hallucis Longus Strength Grade 5 Normal Ankle Dorsiflexion Strength Grade 5 Normal Gastronemius/Soleus Strength Grade 5 Normal DTR Rt Patellar 0 Lt Patellar 0 Rt Gastroc/Soleus 0 Lt Gastroc/Soleus 0 Altered Sensation Bilateral LE Dermatome Level L2,L3 Comment decreased light touch discrimination in above pattern of LLE compared to RLE Special Tests Lumbar Spine Screen Positive Rib Inspiration/Expiration Breathing Negative Test Hip Piriformis Test Positive Left Sciatic Nerve Tension Test Positive Left,Positive Right Unilateral Straight Leg Raise (Lasegue) Positive Right Test Outpatient Therapy Assessment Impairments Problems/Impairmments Palpation Tenderness,Impaired Range of Motion,Impaired Strength,Impaired Transfers, Impaired Walking,Impaired Standing,Impaired Sitting, Impaired Lifting,Impaired Bending,Impaired Recreational Activities,Subjective C/O Pain ,Impaired Self Care/Self Management Prognosis Rehab Potential Good Comment w/ HEP compliancy Clinical Impression Consistent with Diagnosis Yes Consistent with R-sided QL strain, L lumbar radicul Short Term Goals Number of Weeks 2 Decreased Palpation Tenderness Yes: grade 1-2 +TTP to TTP assessment above Decrease Subjective C/O Pain Yes: worse:08/15 Patient to be Ind w/ HEP Yes [employer] Manager Goals Number of Weeks 4-6 Decreased Palpation Tenderness Yes: grade 1 +TTP to TTP assessment above Increase Range of Motion Yes: lumbar spine ROM WFL in all planes of motion Increase Strength Yes: 4+ to 5/5 BLE hip MMT scores grossly Improve Transfers Yes: bed mobility w/o difficulty Increase Ability to Stand Yes Increase Ability to Sit Yes Return to Recreational Activities Yes: Pt. will be able to return to [employer] related activities w/o difficulty Improve Oswestry Score Yes Decrease Subjective C/O Pain Yes: worse:-05/18 Patient to be Ind w/ HEP Yes Outpatient Therapy Plan of Care Treatment Plan May Include Therapeutic Exercise Including Home Yes Exercise Program Manual Therapy Techniques Yes Neuromuscular Re-education Yes Therapeutic Activities to Return to Yes Previous Functional/Work Level ADL/Self Care Education Yes Mechanical Traction Yes Dry Needling Yes Thermal Modalities Yes Electrical Stimulation Yes Ultrasound/Phonophoresis Yes Iontophoresis Yes Vasopneumatic Compression Pump Yes Massage Yes Eval/Re-Eval Yes Frequency Times per week 2 Duration Number of Weeks 4-6 Addendums This patient is a candidate for social No or vocational rehab? Patient/Guardian verbally acknowledges Yes understanding of treatment program and consents to further treatment? Patient/Guardian verbally acknowledges Yes understanding of diagnosis, prognosis and goals for treatment? Eval Complexity PT Charges 84473 - Moderate Complexity Shoulder/Elbow Eval Shoulder Objective Measurements Elbow Objective Measurements PHYSICIAN CERTIFICATION: I certify the specified therapy services for Hardik Laws are required, authorized, and reviewed every 30 days.
== END 2023-11-25 13:55 | disposition home or self-care (01) ==
LOC: PT 07:00
PROVIDERS: Visit Provider Internal Medicine Adolescent Medicine
DX: M54.50 Low back pain, unspecified (principal)
CPT/HCPCS: 97010; 97014; 97035; 97110; 97140; 97163; G0283

== ENCOUNTER 2024-03-25 07:15 | Outpatient (CLI) | payer MEDICARE, SELFPAY ==
--- NOTE | 2024-03-25 07:18 | CT_ITS ---
FINAL REPORT TECHNIQUE: Noncontrast CT exam of the abdomen and pelvis. This study was performed with techniques to keep radiation doses as low as reasonably achievable (ALARA). Individualized dose reduction techniques using automated exposure control or adjustment of mA and/or kV according to the patient''s size were employed. CLINICAL HISTORY: HEMATURIA COMPARISON: None FINDINGS: Abdomen: Lung bases are clear. Numerous surgical clips are seen in the left upper quadrant. The abdominal solid organs are unremarkable. There is a moderate size hiatal hernia. The patient is status postcholecystectomy. Bowel is unremarkable. The kidneys show no stone disease or obstruction. No obvious renal mass is present. No ureteral stones are present. Pelvis: Moderate sigmoid diverticulosis is noted. There is nonvisualization of the appendix. Mild prostate enlargement. There is a small left inguinal hernia containing fat. The bladder is poorly distended. No fluid collection or adenopathy is seen. IMPRESSION: No findings to account for hematuria. Moderate size hiatal hernia. Reviewed, Interpreted and Dictated by Johana Poewrs MD Transcribed by Samantha Rod Authenticated and . [facility]
== END 2024-03-25 23:59 | disposition home or self-care (01) ==
LOC: RAD 07:16
PROVIDERS: PCP Internal Medicine Adolescent Medicine; Visit Provider Internal Medicine Adolescent Medicine
DX: R31.9 Hematuria, unspecified (principal)
CPT/HCPCS: 74176